=== PATIENT | male | born 1990 | race Caucasian/White ===

== ENCOUNTER 2022-08-30 19:20 | Emergency (ER) | payer OTHER, MEDICAID, SELFPAY ==
[2022-08-30 19:38] VITALS: BP 124/64; PULSE 88; RESP 15; TEMP 36.4; O2SAT 97; BMI 20.2
--- NOTE | 2022-08-30 22:31 | ED_ITS ---
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 Notes that 2 days ago he spilled quite a bit of fluid (water and excess food debris, nothing toxic) into his boots and his feet were wet most of the night. This is not usual nor is he typically in a particularly cold environment. He did take a shower when he got home but noted some slight redness over his feet. He was having increasing pain at work today after not observing his feet prior to coming into work or before he went to bed the night prior. Notice that the pain was increasing and he took his socks off and is concerned with the amount of redness over the great toes in the small toes. Comes in for further evaluation. He is not complaining of fevers or chills, there is no lymphangitic streaking there is no other complaints. He notes that he does typically sleep on the couch and typically wears socks at night but is able to take shoes off. He notes no nausea, vomiting, diarrhea Related Data Previous Rx's Medication Instructions Recorded naproxen 250 mg tablet 250 mg PO BID PRN pain #14 tabs 03/05/22 cephalexin 500 mg capsule 500 mg PO TID 5 days #15 caps 08/30/22 Allergies Allergy/AdvReac Type Severity Reaction Status Date / Time No Known Drug Allergies Allergy Unverified 03/27/22 10:36 Review of Systems Review of Systems Narrative: Remainder of complete review of systems is otherwise unremarkable except for that included in the HPI. Patient History Social History Smoking Status: Never smoker Smoking Status: Never smoker Substance Use Type: does not use Exam Initial Vital Signs Initial Vital Signs: Vital Signs Temperature 97.6 F 08/30/22 19:38 Pulse Rate 88 08/30/22 19:38 Respiratory Rate 15 08/30/22 19:38 Blood Pressure 124/64 08/30/22 19:38 Pulse Oximetry 97 08/30/22 19:38 Oxygen Delivery Method 08/30/22 19:38 General: Alert appropriate in no acute distress Respiratory: Able to speak in full sentences, no obvious respiratory distress Skin: No obvious rashes, warm and dry Neurologic: Grossly intact no obvious asymmetries or abnormalities Psych: appropriate insight and affect, cooperative Extremities: Feet are examined his great toes and small toes are slightly erythematous consistent with mild maceration likely from spending more than 12 hours wet while at work the other day. Does have full sensation. The erythematous areas from the exposure also have some areas of brighter erythema that are concerning for a staph or strep developing cellulitis. He does not have swelling to the feet or the ankles. There is no expanding cellulitis over the feet and no lymphangitic streaking. He has no inguinal adenopathy. He has a chronically missing great toenail on the left side, there is no additional nail involvement with the other 9 toes and no subungual hematomas Course Orders Ordered: Discontinued Medications Cephalexin HCl (Cephalexin 250 Mg Capsule) 500 mg PO NOW ONE Stop: 08/30/22 22:43 Last Admin: 08/30/22 22:45 Dose: 500 mg Vital Signs Vital signs: Vital Signs - 8 hr 08/30/22 19:38 Temperature 97.6 F Pulse Rate 88 Respiratory Rate 15 Blood Pressure 124/64 Pulse Oximetry 97 Oxygen Delivery Method Room Air MDM - Extremity (Nontraumatic) MDM Narrative Medical decision making narrative: CC: Bilateral foot pain. This is a new problem uncertain diagnosis and uncertain prognosis Complicating co-morbidities: Wears boots that are loosely fitting but worn for 12 hours at a time Corroborating data: Data collected from: patient, Differential considered: Schmid nip, trench foot, cellulitis, trauma to the toes, Exam documented above, pertinent findings include: Erythema to both great toes in both small toes Discussion: Explain to the patient that this looks like there is some mild skin breakdown from the maceration exposure and now he is beginning to develop superficial cellulitis. With no other systemic symptoms together we decided that additional workup including lab work was not required at this time. Given a 1st dose of Keflex and discharged home with additional Keflex and instructions to follow up with symptoms worsen Disposition: see below, along with detailed discharge instructions that have been reviewed with patient as well as indications for ED re-evaluation and additional outpatient follow up Discharge Plan Departure Patient Disposition: Home Clinical Impression: Cellulitis Instructions: DI for Cellulitis -- Adult Activity Restrictions/Additional Instructions: Thank you for coming in today Your feet look like they were exposed to either cold or wet or both for an extended period of time which caused some minor breakdown and now your developing a superficial skin infection over the great toes and small toes. I am going to recommend that you complete a 5 day course of Keflex, an antibiotic. I have given you the 1st dose this evening The remainder of the prescription was electronically transmitted to [facility] You do need to keep your feet as clean and dry as possible. I would recommend taking a clean pair of socks to work in changing mid shift to make sure that they do stay dry. I would also recommend not sleeping with socks on again so the feet can completely dry out. Washing them daily will also be helpful and if you do have a hair impregnator and drier, gently drying in between your toes will again get the skin to as dry as possible to allow the infection to heal as quickly and completely as possible If you notice worsening symptoms, red extending up your feet or your ankles, develop fevers or chills or new symptoms you do need to return to the emergency department Prescriptions: New cephalexin 500 mg capsule 500 mg PO TID 5 Days Qty: 15 0RF No Action naproxen 250 mg tablet 250 mg PO BID PRN (Reason: pain) Qty: 14 0RF Referrals: Miscellaneous,Doctor, MD [Primary Care Provider] - Stand Alone Forms: Patient Portal/API, Work Release Note
[2022-08-30] MEDS: cephALEXin 250 MG CAPSULE 500 MG PO (22:45)
[2022-08-30 22:57] VITALS: BP 116/75; PULSE 82; RESP 16; O2SAT 96
== END 2022-08-30 23:01 | disposition home or self-care (01) ==
PROVIDERS: Emergency Provider Emergency Medicine
DX: L03.116 Cellulitis of left lower limb (principal); L03.115 Cellulitis of right lower limb
CPT/HCPCS: 99283

== ENCOUNTER → 2023-04-08 08:18 | Outpatient (CLI) | payer OTHER, MEDICAID, SELFPAY ==
[2023-04-08 10:37] LABS: Influenza A - CEPHEID Flu A NEGATIVE (NEGATIVE); Influenza B - CEPHEID Flu B NEGATIVE (NEGATIVE); Respiratory Syncytial Virus Negative (Negative)
[2023-04-08 10:43] LABS: COVID-19 CEPHEID 4-PLEX PCR Negative (Negative)
== END ==
PROVIDERS: PCP Family Medicine; Visit Provider Physician Assistant
DX: J06.9 Acute upper respiratory infection, unspecified (principal); Z20.822 Contact with and (suspected) exposure to COVID-19
CPT/HCPCS: 0241U; 87880

== ENCOUNTER 2024-05-29 18:28 | Emergency (ER) | payer BC, SELFPAY ==
[2024-05-29 18:32] VITALS: BP 118/66; PULSE 78; RESP 16; TEMP 36.5; O2SAT 98; BMI 20.5
--- NOTE | 2024-05-29 18:58 | ED.WOUNDLAC ---
HPI - Wound/Laceration General Chief Complaint: Wound/Laceration Stated Complaint: cut finger, might need stitches Time Seen by Provider: 05/29/24 18:58 Source: patient Mode of arrival: Ambulatory History of Present Illness HPI narrative: 34-year-old male was washing dishes this evening, cut right index fingertip on cheese grater, small laceration to tip right index finger, would not stop bleeding, here for evaluation. No other injuries. No history of blood thinners or bleeding problems in general. Unclear date of last tetanus, he thinks more than 5 years, willing to get updated. Related Data Home Medications Medication Instructions Recorded Confirmed hydroxyzine pamoate 50 mg capsule 50 mg PO Q6H PRN 03/30/24 05/04/24 oxcarbazepine 150 mg tablet 150 mg PO BID 03/30/24 05/04/24 Previous Rx's Medication Instructions Recorded fluoxetine 40 mg capsule (Prozac) 40 mg PO DAILY #100 caps 03/30/24 Allergies Allergy/AdvReac Type Severity Reaction Status Date / Time No Known Drug Allergies Allergy Verified 05/29/24 18:32 Review of Systems Review of Systems Narrative: see HPI Patient History Medical History (Updated 05/29/24 @ 19:19 by Saulo Gilbert MD) MICHELLE (generalized anxiety disorder) Suicidal ideation PTSD (post-traumatic stress disorder) Depression, unspecified Autistic disorder Viral URI ADHD Social History Smoking Status: Never smoker Smoking Status: Never smoker Substance Use Type: does not use Exam Narrative Exam Narrative: GENERAL: Well-developed patient, in mild distress. HEAD: Atraumatic. Normocephalic. EYES: Pupils equal round and reactive. Extraocular motions intact. No scleral icterus. No injection or drainage. ENT: Nose without bleeding, purulent drainage. Throat without erythema, tonsillar hypertrophy or exudate. Airway patent. NECK: Trachea midline. Non tender CARDIOVASCULAR: Regular rate and rhythm without murmurs, gallops, or rubs. RESPIRATORY: Clear to auscultation. Breath sounds equal bilaterally. No wheezes, rales, or rhonchi. GASTROINTESTINAL: Abdomen soft, non-tender, nondistended. EXTREMITIES: No edema or joint tenderness. Small 6 mm shallow linear laceration to right index fingertip, not actively bleeding when dressing removed. No subungual hematoma or other nailbed injury. No other injuries obvious to the other adjacent fingers or hand or wrist. NEURO: AOx3. Motor functions grossly nonfocal SKIN: No rash or erythema of visible areas. Fingertip laceration as above Initial Vital Signs Initial Vital Signs: Vital Signs Temperature 97.7 F 05/29/24 18:32 Pulse Rate 78 05/29/24 18:32 Respiratory Rate 16 05/29/24 18:32 Blood Pressure 118/66 05/29/24 18:32 Pulse Oximetry 98 05/29/24 18:32 Oxygen Delivery Method Room Air 05/29/24 18:32 Procedures Laceration Repair Laceration 1: Site: hand (Index fingertip) Side (If applicable): right Size (cm): 0.6 Description: linear Skin layer closed with: steri-strips Number of sutures: 1 Course Orders Ordered: Discontinued Medications Diphtheria/Tetanus/Acell Pertussis (Tet,Diph,Pertuss(Acell),Vac/Pf 0.5 Ml Syringe) 0.5 ml IM .ONCE ONE Stop: 05/29/24 19:14 Last Admin: 05/29/24 19:22 Dose: 0.5 ml Documented By: MAXINE Vital Signs Vital signs: Vital Signs - 8 hr 05/29/24 18:32 Temperature 97.7 F Pulse Rate 78 Respiratory Rate 16 Blood Pressure 118/66 Pulse Oximetry 98 Oxygen Delivery Method Room Air MDM - Wound/Laceration MDM Narrative Medical decision making narrative: 34-year-old with right index fingertip laceration, had been bleeding, stopped, small subcentimeter shallow laceration fingertip not extending to nailbed, single Steri-Strips applied by nursing. IM Tdap tetanus update given. Wound infection warnings discussed. Return precautions discussed. Discharged home Discharge Plan Departure Patient Disposition: Home Clinical Impression: Finger laceration Activity Restrictions/Additional Instructions: Right index fingertip laceration from cheese Grater at home, persistent bleeding by report. On exam no active bleeding, small linear laceration fairly superficial in appearance. We discussed x-rays, likely not to bone area, hold x-ray imaging for now. Tetanus shot update given. Steri-Strips applied for extra support around the laceration, which should fall off by itself next few days. Avoid getting the area wet for the next few days. Recheck if any increasing pain or swelling or discharge, any swelling of the finger or hand, or any other concerns for infection. Prescriptions: No Action hydroxyzine pamoate 50 mg capsule 50 mg PO Q6H PRN oxcarbazepine 150 mg tablet 150 mg PO BID Patient Comments: [NO ORIGINAL SIG] fluoxetine [Prozac] 40 mg capsule 40 mg PO DAILY Qty: 100 3RF Referrals: Jaqui Jacobo DO [Primary Care Provider] - Stand Alone Forms: Patient Portal/API/Survey
[2024-05-29] MEDS: TET,DIPH,PERTUSS(ACELL),VAC/PF 0.5 ML SYRINGE IM (19:22)
== END 2024-05-29 19:27 | disposition home or self-care (01) ==
PROVIDERS: Emergency Provider Emergency Medicine; PCP Family Medicine
DX: S61.210A Laceration without foreign body of right index finger without damage to nail, initial encounter (principal); W25.XXXA Contact with sharp glass, initial encounter; Z23 Encounter for immunization
CPT/HCPCS: 90471; 99283; 90715

== ENCOUNTER 2024-07-05 21:50 | Emergency (ER) | payer BC, SELFPAY ==
[2024-07-05 21:58] VITALS: BP 113/60; PULSE 77; RESP 16; TEMP 36.6; O2SAT 98; BMI 20.7
[2024-07-05 23:44] VITALS: BP 110/69; PULSE 80; RESP 18; TEMP 36.8; O2SAT 98
--- NOTE | 2024-07-06 01:30 | PC.NURSE ---
pt has swelling around the cuticle of the right thumb no drainage, denies any injury
--- NOTE | 2024-07-06 02:41 | ED.UPPEXIN ---
HPI - Extremity Injury (Upper) General Chief Complaint: Extremity Injury, Upper Stated Complaint: Infection in R Thumb Time Seen by Provider: 07/06/24 02:24 Source: patient Mode of arrival: Ambulatory History of Present Illness HPI narrative: 34-year-old male complains of right thumb area redness, no bite or puncture wound, increasing pain. No fevers. No redness extending to the palm or wrist or forearm. Patient is not currently on any antibiotics. First visit for this, not taking oral antibiotics. Wound is not draining. No attempted fingernail clippings or other recent nail procedures. Related Data Home Medications Medication Instructions Recorded Confirmed hydroxyzine pamoate 50 mg capsule 50 mg PO Q6H PRN 03/30/24 07/01/24 Previous Rx's Medication Instructions Recorded fluoxetine 40 mg capsule (Prozac) 40 mg PO DAILY #100 caps 03/30/24 oxcarbazepine 150 mg tablet 150 mg PO BID #60 tabs 06/02/24 amoxicillin 875 mg-potassium 1 tab PO BID 7 days #14 tabs 07/01/24 clavulanate 125 mg tablet cephalexin 500 mg capsule 500 mg PO QID 7 days #28 caps 07/06/24 sulfamethoxazole 800 1 tab PO BID #14 tabs 07/06/24 mg-trimethoprim 160 mg tablet (Bactrim DS) Allergies Allergy/AdvReac Type Severity Reaction Status Date / Time No Known Drug Allergies Allergy Verified 06/02/24 09:24 Review of Systems Review of Systems Narrative: see HPI Patient History Medical History MICHELLE (generalized anxiety disorder) Suicidal ideation PTSD (post-traumatic stress disorder) Depression, unspecified Autistic disorder Viral URI ADHD Social History Smoking Status: Never smoker Smoking Status: Never smoker Exam Narrative Exam Narrative: GENERAL: Well-developed patient, in mild distress. HEAD: Atraumatic. Normocephalic. EYES: Pupils equal round and reactive. Extraocular motions intact. No scleral icterus. No injection or drainage. ENT: Nose without bleeding, purulent drainage. Throat without erythema, tonsillar hypertrophy or exudate. Airway patent. NECK: Trachea midline. Non tender CARDIOVASCULAR: Regular rate and rhythm without murmurs, gallops, or rubs. RESPIRATORY: Clear to auscultation. Breath sounds equal bilaterally. No wheezes, rales, or rhonchi. GASTROINTESTINAL: Abdomen soft, non-tender, nondistended. EXTREMITIES: Right thumb medial aspect periungual fluctuance, consistent with paronychia, no expressible fluid, redness surrounding in medial dorsal thumb, no grossly obvious IP swelling, no MCP swelling of the thumb. BACK: Nontender without deformity or crepitance. No flank tenderness. NEURO: AOx3. Motor functions grossly nonfocal SKIN: No rash or erythema of visible areas Initial Vital Signs Initial Vital Signs: Vital Signs Temperature 97.9 F 07/05/24 21:58 Pulse Rate 77 07/05/24 21:58 Respiratory Rate 16 07/05/24 21:58 Blood Pressure 113/60 07/05/24 21:58 Pulse Oximetry 98 07/05/24 21:58 Oxygen Delivery Method Room Air 07/05/24 21:58 Procedures Abscess I/D I&D #1: Local Anesthetic: lidocaine 1% and with epi Amount of anesthesia used (mL): 3 Technique: incised with #11 blade Amount of fluid expressed (mL): 1 Irrigation: No Packing used?: none Complications: pain and other (Wound culture sent) Course Orders Ordered: Discontinued Medications Hydrocodone Bitart/Acetaminophen (Hydrocodone/Acet 5/325 Tablet) 1 tab PO NOW ONE Stop: 07/06/24 02:58 Last Admin: 07/06/24 03:03 Dose: 1 tab Documented By: Cephalexin HCl (Cephalexin 250 Mg Capsule) 500 mg PO NOW ONE Stop: 07/06/24 02:58 Last Admin: 07/06/24 03:02 Dose: 500 mg Documented By: AB Ibuprofen (Ibuprofen 400 Mg Tablet) 800 mg PO NOW ONE Stop: 07/06/24 03:08 Last Admin: 07/06/24 03:09 Dose: 800 mg Documented By: AB Trimethoprim/Sulfamethoxazole (Trimeth/Sulfa 160/800 (Ds) Tablet) 1 tab PO NOW ONE Stop: 07/06/24 02:58 Last Admin: 07/06/24 03:03 Dose: 1 tab Documented By: AB Vital Signs Vital signs: Vital Signs - 8 hr 07/05/24 23:44 07/06/24 03:20 Temperature 98.2 F Pulse Rate 80 80 Respiratory Rate 18 16 Blood Pressure 110/69 112/80 Pulse Oximetry 98 99 Oxygen Delivery Method Room Air Room Air MDM - Extremity Injury (Upper) MDM Narrative Medical decision making narrative: 34-year-old male with right thumb paronychia, surrounding cellulitis, doubt phelon at this time. Verbal consent for incision and drainage. Con digital block lidocaine, stab incision #11 Blade, purulence expressed, wound culture sent. Oral Keflex, oral Bactrim, 1st doses antibiotics given, prescription sent to pharmacy for futrther oral courses, pending wound culture results. Wound soaked, with self expression pus/blood from incision wound, then dressed with bulky dressing by nursing. Wound check in the next 24-48 hours, here if he can not make any outpatient changes with his regular provider. Advised [id number] pain medications as needed. Tolerated procedure well. Return precautions discussed Discharge Plan Departure Patient Disposition: Home Clinical Impression: Paronychia of finger, Cellulitis of left thumb Activity Restrictions/Additional Instructions: One-week duration right nailbed area swelling, with redness to the distal tip thumb. No fever on triage. On examination you seemed to have some fluctuance in the periungual around the nail area, consistent with paronychia small abscess, and associated cellulitis of the rest of the adjacent finger. Con digital block was injected to the thumb base, with sharp 11. Blade stab incision, white yellow pus was expressed, wound culture sent. Oral dose of cephalexin and Bactrim, 1st dose now, further prescriptions pending culture results sent to your pharmacy. Pain medication given in the emergency department, along with home pack to use next couple of days if needed. Consider taking ibuprofen [id number] for pain control as well. Wound check advised here or with your regular doctor in the next couple of days. Also consider local follow up Orthopedic surgery consultation, clinic consultation contact information provided for Dr. Long. Recheck in the next couple of days in these resource environments, or here if you are unable to arrange any other follow up. Return earlier to this/nearest emergency department for any change worsening symptoms or any concerns prior Prescriptions: New sulfamethoxazole-trimethoprim [Bactrim DS] 800-160 mg tablet 1 tab PO BID Qty: 14 0RF cephalexin 500 mg capsule 500 mg PO QID 7 Days Qty: 28 0RF No Action amoxicillin-pot clavulanate 875-125 mg tablet 1 tab PO BID 7 Days Qty: 14 0RF hydroxyzine pamoate 50 mg capsule 50 mg PO Q6H PRN fluoxetine [Prozac] 40 mg capsule 40 mg PO DAILY Qty: 100 3RF oxcarbazepine 150 mg tablet 150 mg PO BID Qty: 60 11RF Referrals: Amy Bailey MD [Physician] - Jaqui Jacobo DO [Primary Care Provider] - Stand Alone Forms: Patient Portal/API/Survey
--- NOTE | 2024-07-06 03:01 | PC.NURSE ---
Dr Gilbert in and thumb I/D with culture obtained and sent to lab
[2024-07-06] MEDS: cephALEXin 250 MG CAPSULE 500 MG PO (03:02)
[2024-07-06] MEDS: HYDROCODONE/ACET 5/325 TABLET 1 TAB PO (03:03)
[2024-07-06] MEDS: TRIMETH/SULFA 160/800 (DS) TABLET 1 TAB PO (03:03)
[2024-07-06] MEDS: IBUPROFEN 400 MG TABLET 800 MG PO (03:09)
[2024-07-06 03:20] VITALS: BP 112/80; PULSE 80; RESP 16; O2SAT 99
--- NOTE | 2024-07-07 12:34 | CM.SWNOTE ---
ED FOOD RUNNER follow up note FOOD RUNNER attempts to call patient but phone is disconnected, FOOD RUNNER identifies that patient missed PCP appt today as well. Ana Anderson, DATA INTEGRATION DEVELOPER
== END 2024-07-06 03:28 | disposition home or self-care (01) ==
PROVIDERS: Emergency Provider Emergency Medicine; PCP Family Medicine
DX: L03.012 Cellulitis of left finger (principal); L02.512 Cutaneous abscess of left hand
CPT/HCPCS: 10060; 99283

== ENCOUNTER 2024-08-17 14:28 | Emergency (ER) | payer BC, SELFPAY ==
[2024-08-17 15:10] VITALS: BP 110/66; PULSE 63; RESP 18; TEMP 36.8; O2SAT 98; BMI 20.7
[2024-08-17 18:27] VITALS: BP 110/72; PULSE 65; RESP 20; TEMP 37; O2SAT 100
--- NOTE | 2024-08-17 18:39 | ED_ITS ---
HPI - Skin/Abscess/Foreign Bdy <Nicol Mejia PA-C - Last Filed: 08/17/24 18:45> General Chief complaint: Skin/Abscess/Foreign Body Stated complaint: poss infection on finger Time Seen by Provider: 08/17/24 17:16 Source: patient Mode of arrival: Ambulatory Limitations: no limitations History of Present Illness HPI narrative: 34-year-old male presents to the ED with a right ring finger infection for 2 days. Patient states that he did not have any injury he is aware of. Patient had a similar infection of the thumb last month as well. Patient denies fever, chills, numbness, tingling, weakness. Patient has full range of motion. Patient complains of swelling, redness, pain at the tip of the right ring finger. Related Data Home Medications Medication Instructions Recorded Confirmed hydroxyzine pamoate 50 mg capsule 50 mg PO Q6H PRN 03/30/24 07/01/24 Previous Rx's Medication Instructions Recorded fluoxetine 40 mg capsule (Prozac) 40 mg PO DAILY #100 caps 03/30/24 oxcarbazepine 150 mg tablet 150 mg PO BID #60 tabs 06/02/24 sulfamethoxazole 800 1 tab PO BID #14 tabs 07/06/24 mg-trimethoprim 160 mg tablet (Bactrim DS) cephalexin 500 mg tablet 500 mg PO TID 7 days #21 tabs 08/17/24 sulfamethoxazole 800 1 tab PO Q12H 7 days #14 tabs 08/17/24 mg-trimethoprim 160 mg tablet (Bactrim DS) Allergies Allergy/AdvReac Type Severity Reaction Status Date / Time No Known Drug Allergies Allergy Verified 06/02/24 09:24 Review of Systems <Nicol Mejia PA-C - Last Filed: 08/17/24 18:45> Constitutional Constitutional: Denies chills, Denies fatigue, Denies fever(s), Denies frequent falls, Denies lethargy and Denies weakness Eyes Eyes: Denies change in vision, Denies eye discharge, Denies irritation and Denies loss of vision ENT Ears, Nose, Mouth, and Throat: Denies change in voice, Denies dizziness, Denies neck pain, Denies sore throat and Denies throat swelling Cardiovascular Cardiovascular: Denies chest pain, Denies irregular heart rhythm, Denies lightheadedness, Denies palpitations, Denies dyspnea, Denies dyspnea on exertion and Denies orthopnea Respiratory Respiratory: Denies cough, Denies dyspnea, Denies dyspnea on exertion and Denies wheezing Gastrointestinal Gastrointestinal: Denies abdominal pain, Denies change in bowel habits, Denies diarrhea, Denies nausea and Denies vomiting Musculoskeletal Musculoskeletal: Denies neck pain and Denies numbness Integumentary/Breasts Skin/Breast: Denies pruritus, Denies erythema, Denies rash and Denies wounds Comments: Right ring fingertip swelling, redness, pain Neurologic Neurologic: Denies behavioral changes, Denies confusion, Denies dizziness, Denies frequent falls, Denies loss of vision, Denies numbness and Denies w eakness Psychiatric Psychiatric: Denies anxiety, Denies behavioral changes, Denies confusion, Denies depression, Denies homicidal ideation and Denies suicidal ideation Endocrine Endocrine: Denies fatigue, Denies flushing and Denies palpitations Hematologic/Lymphatic Hematologic/Lymphatic: Denies easy bruising Allergic/Immunologic Allergic/Immunologic: Denies urticaria, Denies throat swelling and Denies wheezing Patient History <Nicol Mejia PA-C - Last Filed: 08/17/24 18:45> Medical History MICHELLE (generalized anxiety disorder) Suicidal ideation PTSD (post-traumatic stress disorder) Depression, unspecified Autistic disorder Viral URI ADHD Social History Smoking Status: Never smoker Smoking Status: Never smoker Exam <Nicol Mejia PA-C - Last Filed: 08/17/24 18:45> Narrative Exam Narrative: Const General:?cooperative, healthy appearing and comfortable [facility] Head:?normal to inspection Ears:?hearing grossly normal bilaterally Nose:?external nose normal Face and sinus:?normal facial exam and sinuses nontender Mouth:?oral mucosae normal Throat:?posterior oropharynx normal Eyes General:?appearance normal, both eyes and all related structures Neck Neck:?normal visual inspection and no lymphadenopathy noted Resp Effort & Inspection:?normal respiratory effort Auscultation:?clear to auscultation bilaterally Cardio Rate:?regular rate Rhythm:?regular rhythm Integumentary Tip of the right ring finger with swelling, tenderness to pain, fluctuance lateral to the nail. There is overlying erythema. Full range of motion. Strength and sensation is intact. Neurovascularly intact. Neuro General:?patient alert, patient awake and patient oriented x3 Initial Vital Signs Initial Vital Signs: Vital Signs Temperature 98.2 F 08/17/24 15:10 Pulse Rate 63 08/17/24 15:10 Respiratory Rate 18 08/17/24 15:10 Blood Pressure 110/66 08/17/24 15:10 Pulse Oximetry 98 08/17/24 15:10 Oxygen Delivery Method Room Air 08/17/24 15:10 <Joel Ochoa MD - Last Filed: 08/18/24 07:35> Initial Vital Signs Initial Vital Signs: Vital Signs Temperature 98.2 F 08/17/24 15:10 Pulse Rate 63 08/17/24 15:10 Respiratory Rate 18 08/17/24 15:10 Blood Pressure 110/66 08/17/24 15:10 Pulse Oximetry 98 08/17/24 15:10 Oxygen Delivery Method Room Air 08/17/24 15:10 Procedures <Nicol Mejia PA-C - Last Filed: 08/17/24 18:45> Abscess I/D I&D #1: Site: hand Side (if applicable): right Sedation/analgesia: none Technique: incised with #11 blade Amount of fluid expressed (mL): 1 Irrigation: No Packing used?: none Course <Nicol Mejia PA-C - Last Filed: 08/17/24 18:45> Vital Signs Vital signs: Vital Signs - 8 hr 08/17/24 15:10 08/17/24 18:27 Temperature 98.2 F 98.6 F Pulse Rate 63 65 Respiratory Rate 18 20 Blood Pressure 110/66 110/72 Pulse Oximetry 98 100 Oxygen Delivery Method Room Air Room Air <Joel Ochoa MD - Last Filed: 08/18/24 07:35> Vital Signs Vital signs: Vital Signs - 8 hr 08/17/24 15:10 08/17/24 18:27 Temperature 98.2 F 98.6 F Pulse Rate 63 65 Respiratory Rate 18 20 Blood Pressure 110/66 110/72 Pulse Oximetry 98 100 Oxygen Delivery Method Room Air Room Air MDM - Skin/Abscess/Foreign Bdy <Nicol Mejia PA-C - Last Filed: 08/17/24 18:45> MDM Narrative Medical decision making narrative: 34-year-old male presents to the ED with a right ring finger infection for 2 days. Physical exam is consistent with a paronychia of the right ring finger with overlying cellulitis. Incision and drainage was performed, antibiotics prescribed. Recommend follow-up with PCP as soon as possible. ED return precautions discussed with patient. Patient verbalized understanding. Medical records reviewed: Yes Discharge Plan Departure Patient Disposition: Home Clinical Impression: Paronychia Instructions: DI for Paronychia Activity Restrictions/Additional Instructions: You were evaluated in the emergency department for a finger infection. You are being prescribed antibiotics. Please take them as prescribed. Return to the ED if you have worsening symptoms, numbness, tingling, weakness. Prescriptions: New cephalexin 500 mg tablet 500 mg PO TID 7 Days Qty: 21 0RF sulfamethoxazole-trimethoprim [Bactrim DS] 800-160 mg tablet 1 tab PO Q12H 7 Days Qty: 14 0RF No Action hydroxyzine pamoate 50 mg capsule 50 mg PO Q6H PRN fluoxetine [Prozac] 40 mg capsule 40 mg PO DAILY Qty: 100 3RF oxcarbazepine 150 mg tablet 150 mg PO BID Qty: 60 11RF sulfamethoxazole-trimethoprim [Bactrim DS] 800-160 mg tablet 1 tab PO BID Qty: 14 0RF Referrals: Jaqui Jacobo DO [Primary Care Provider] - Stand Alone Forms: Patient Portal/API/Survey ED Sign-out <Joel Ochoa MD - Last Filed: 08/18/24 07:35> Cosign ED Attending Cosdianaature Attestation: I was immediately available in the department for consultation. ?This documentation has been reviewed and I agree with assessment and plan. Supervised by Joel Ochoa MD
== END 2024-08-17 18:29 | disposition home or self-care (01) ==
PROVIDERS: Emergency Provider Student in an Organized Health Care Education/Training Program; PCP Family Medicine
DX: L03.011 Cellulitis of right finger (principal)
CPT/HCPCS: 10060; 87070; 87075; 87205; 99281; 99283

== ENCOUNTER 2024-08-23 18:31 | Emergency (ER) | payer BC, SELFPAY ==
[2024-08-23 18:33] VITALS: BP 129/88; PULSE 103; RESP 18; TEMP 36.8; O2SAT 97; BMI 20.7
[2024-08-23 23:39] LABS: Ictotest Urine Negative (Negative)
[2024-08-23 23:56] VITALS: BP 119/76; PULSE 59; O2SAT 97
--- NOTE | 2024-08-23 23:56 | ED_ITS ---
HPI - General Adult General Chief complaint: Urogenital-Male Stated complaint: groin px Time Seen by Provider: 08/23/24 23:05 Source: patient Mode of arrival: Ambulatory History of Present Illness HPI narrative: 34-year-old male with penile redness and discharge, states that he has been frequently and aggressively masturbating since split up with his a year ago, especially in recent days, with some redness to the end of his penis and of his shaft area, with some yellow purulent discharge. No discharge from the end of his penis. No painful urination. No known history of sexually transmitted diseases. No vesicles or lesions to the lower part of his penis, or his scrotum or perineal groin region. No hair follicle inflammation changes. Related Data Home Medications Medication Instructions Recorded Confirmed hydroxyzine pamoate 50 mg capsule 50 mg PO Q6H PRN 03/30/24 07/01/24 Previous Rx's Medication Instructions Recorded fluoxetine 40 mg capsule (Prozac) 40 mg PO DAILY #100 caps 03/30/24 oxcarbazepine 150 mg tablet 150 mg PO BID #60 tabs 06/02/24 sulfamethoxazole 800 1 tab PO BID #14 tabs 07/06/24 mg-trimethoprim 160 mg tablet (Bactrim DS) cephalexin 500 mg tablet 500 mg PO TID 7 days #21 tabs 08/17/24 sulfamethoxazole 800 1 tab PO Q12H 7 days #14 tabs 08/17/24 mg-trimethoprim 160 mg tablet (Bactrim DS) cephalexin 500 mg capsule 500 mg PO QID 7 days #28 caps 08/24/24 sulfamethoxazole 800 1 tab PO BID #14 tabs 08/24/24 mg-trimethoprim 160 mg tablet (Bactrim DS) Allergies Allergy/AdvReac Type Severity Reaction Status Date / Time No Known Drug Allergies Allergy Verified 06/02/24 09:24 Patient History Medical History MICHELLE (generalized anxiety disorder) Suicidal ideation PTSD (post-traumatic stress disorder) Depression, unspecified Autistic disorder Viral URI ADHD Social History Smoking Status: Never smoker Smoking Status: Never smoker Exam Narrative Exam Narrative: GENERAL: Well-developed patient, in mild distress. HEAD: Atraumatic. Normocephalic. EYES: Pupils equal round and reactive. Extraocular motions intact. No scleral icterus. No injection or drainage. ENT: Nose without bleeding, purulent drainage. Throat without erythema, tonsillar hypertrophy or exudate. Airway patent. NECK: Trachea midline. Non tender CARDIOVASCULAR: Regular rate and rhythm without murmurs, gallops, or rubs. RESPIRATORY: Clear to auscultation. Breath sounds equal bilaterally. No wheezes, rales, or rhonchi. GASTROINTESTINAL: Abdomen soft, non-tender, nondistended. : Circumcised male genitalia, donis without lesions, no meatal discharge. Subcoronal distal penile shaft with circumferential erythema proximally 2 cm axial length, with some yellow purulent discharge. No vesicles noted. No inguinal lymphadenopathy. No folliculitis pubic. No tenderness or masses see the scrotum or epididymal region. EXTREMITIES: No edema or joint tenderness. BACK: Nontender without deformity or crepitance. No flank tenderness. NEURO: AOx3. Motor functions grossly nonfocal SKIN: No rash or erythema of visible areas Initial Vital Signs Initial Vital Signs: Vital Signs Temperature 98.2 F 08/23/24 18:33 Pulse Rate 103 H 08/23/24 18:33 Respiratory Rate 18 08/23/24 18:33 Blood Pressure 129/88 08/23/24 18:33 Pulse Oximetry 97 08/23/24 18:33 Oxygen Delivery Method Room Air 08/23/24 18:33 Course Orders Ordered: ED Orders 08/23/24 23:00 Chlamydia Gonorrhea PCR -URINE Stat Ictotest Urine Stat 08/24/24 00:07 Wound Culture and Gram Stain Stat Discontinued Medications Cephalexin HCl (Cephalexin 250 Mg Capsule) 500 mg PO NOW ONE Stop: 08/24/24 00:11 Last Admin: 08/24/24 00:22 Dose: 500 mg Documented By: GEOVANNY Trimethoprim/Sulfamethoxazole (Trimeth/Sulfa 160/800 (Ds) Tablet) 1 tab PO NOW ONE Stop: 08/24/24 00:11 Last Admin: 08/24/24 00:22 Dose: 1 tab Documented By: GEOVANNY Vital Signs Vital signs: Vital Signs - 8 hr 08/23/24 23:56 08/24/24 00:00 Pulse Rate 59 L 61 Blood Pressure 119/76 Pulse Oximetry 97 98 Medical Decision Making Lab Data Lab results reviewed: Yes I reviewed the patient's lab results. Lab results narrative: Urine GC chlamydia negative. Urine dip negative. Labs: Lab Results 08/23/24 Range/Units 23:00 Ur Bilirubin Confirm Negative (Negative) Ur Chlamydia DNA (PCR) Not detected N gonorrhoeae DNA (PCR) Not detected Urine Dip Bedside Urine Glucose Negative Bedside Urine Bilirubin + 1 Bedside Urine Ketone - Negative Urine Specific [place] 1.030 Bedside Urine Occult Blood - Negative Bedside Urine pH 6.0 Bedside Urine Protein - Negative Bedside Urine Urobilinogen - Negative Bedside Urine Nitrite - Negative Bedside Urine Leukocytes - Negative Esterase Point of care testing: Urine Dip Bedside Urine Glucose Negative Bedside Urine Bilirubin + 1 Bedside Urine Ketone - Negative Urine Specific [place] 1.030 Bedside Urine Occult Blood - Negative Bedside Urine pH 6.0 Bedside Urine Protein - Negative Bedside Urine Urobilinogen - Negative Bedside Urine Nitrite - Negative Bedside Urine Leukocytes - Negative Esterase MDM Narrative Medical decision making narrative: 34-year-old male with penile rash in discharge, on examination the rashes distal circumferential penis not coronal, no meatal discharge. Patient has been aggressively and frequently masturbating, has no recent sexual encounters. There is some exudate in the distal penis, wound culture sent. Urine GC chlamydia sent from triage was negative. Urine dip negative. We will treat for cellulitis for now, wound culture sent. Oral cephalexin and oral Bactrim antibiotic 1st dose now, prescription sent to his pharmacy for further course antibiotic. Encouraged to take his antibiotic as directed. Tylenol and or Motrin advised for pain control. Recheck advised with his regular doctor in the next couple of days. Return precautions discussed. Discharge Plan Departure Patient Disposition: Home Clinical Impression: Cellulitis of shaft of penis Activity Restrictions/Additional Instructions: Penile rash painful with discharge, no discharge from the meatus at the end or during urination. Recent vigorous and frequent masturbation, abrasion to the end of the penis, now with redness and discharge from the end of the shaft, not at the end of the opening of the meatus. No known sexual contact for many many months. No sexually transmitted disease contact by history. Examination consistent with cellulitis with discharge, wound culture was sent. First antibiotics oral cephalexin and Bactrim given by mouth, prescriptions sent to your pharmacy for further course of antibiotics. Take antibiotics as prescribed. Recheck with your regular doctor advised the next couple of days. Avoid masturbation and direct injury to that part of the penis. Take Tylenol and or Motrin as needed for pain control. Return earlier to this/nearest [facility] department for any change worsening symptoms or any concerns prior Prescriptions: New cephalexin 500 mg capsule 500 mg PO QID 7 Days Qty: 28 0RF sulfamethoxazole-trimethoprim [Bactrim DS] 800-160 mg tablet 1 tab PO BID Qty: 14 0RF No Action hydroxyzine pamoate 50 mg capsule 50 mg PO Q6H PRN fluoxetine [Prozac] 40 mg capsule 40 mg PO DAILY Qty: 100 3RF oxcarbazepine 150 mg tablet 150 mg PO BID Qty: 60 11RF sulfamethoxazole-trimethoprim [Bactrim DS] 800-160 mg tablet 1 tab PO BID Qty: 14 0RF cephalexin 500 mg tablet 500 mg PO TID 7 Days Qty: 21 0RF sulfamethoxazole-trimethoprim [Bactrim DS] 800-160 mg tablet 1 tab PO Q12H 7 Days Qty: 14 0RF Referrals: Jaqui Jacobo DO [Primary Care Provider] - Stand Alone Forms: Patient Portal/API/Survey, Work Release Note
[2024-08-24] VITALS: PULSE 61; O2SAT 98
--- NOTE | 2024-08-24 00:16 | PC.NURSE ---
thinks wound was inflicted from masturbating a lot.
[2024-08-24] MEDS: cephALEXin 250 MG CAPSULE 500 MG PO (00:22)
[2024-08-24] MEDS: TRIMETH/SULFA 160/800 (DS) TABLET 1 TAB PO (00:22)
[2024-08-24 00:56] LABS: Urine N gonorrhoeae NOT DETECTED
[2024-08-24 01:02] LABS: Urine Chlamydia NOT DETECTED
== END 2024-08-24 00:40 | disposition home or self-care (01) ==
PROVIDERS: Emergency Medicine; Emergency Provider Emergency Medicine; PCP Family Medicine
DX: N48.22 Cellulitis of corpus cavernosum and penis (principal)
CPT/HCPCS: 81003; 87070; 87205; 87491; 87591; 99283

== ENCOUNTER 2025-01-05 01:00 | Emergency (ER) | payer OTHER, SELFPAY ==
[2025-01-05 01:07] VITALS: BP 118/69; PULSE 70; RESP 16; TEMP 36.3; O2SAT 97; BMI 22.3
--- NOTE | 2025-01-05 02:45 | ED.SKABFB ---
HPI - Skin/Abscess/Foreign Bdy General Chief complaint: Skin/Abscess/Foreign Body Stated complaint: Infection on Lft Index Finger x3days Time Seen by Provider: 01/05/25 02:44 Source: patient Mode of arrival: Ambulatory Limitations: no limitations History of Present Illness HPI narrative: 34-year-old male with chart history of autistic disorder, ADHD, PTSD, anxiety, has had prior visits for skin infections including previous paronychia that was drained July 2024. Now complains of left index finger pain and swelling. Currently not on any antibiotics. He does not recall any puncture wounds or biting of his fingers/nails, nor use of any cuticle nail products. Related Data Home Medications ?Medication ?Instructions ?Recorded ?Confirmed hydroxyzine pamoate 50 mg capsule 50 mg PO Q6H PRN 03/30/24 08/24/24 Previous Rx's ?Medication ?Instructions ?Recorded fluoxetine 40 mg capsule (Prozac) 40 mg PO DAILY #100 caps 03/30/24 oxcarbazepine 150 mg tablet 150 mg PO BID #60 tabs 06/02/24 clotrimazole 1 % topical cream 1 applic topical BID 2 weeks #30 08/24/24 grams sulfamethoxazole 800 1 tab PO BID #14 tabs 01/05/25 mg-trimethoprim 160 mg tablet (Bactrim DS) Allergies Allergy/AdvReac Type Severity Reaction Status Date / Time No Known Drug Allergies Allergy Verified 01/05/25 01:07 Patient History Medical History MICHELLE (generalized anxiety disorder) Suicidal ideation PTSD (post-traumatic stress disorder) Depression, unspecified Autistic disorder Viral URI ADHD Exam Narrative Exam Narrative: GENERAL: Well-developed patient, in mild distress. HEAD: Atraumatic. Normocephalic. EYES: Pupils equal round and reactive. Extraocular motions intact. No scleral icterus. No injection or drainage. ENT: Nose without bleeding, purulent drainage. Throat without erythema, tonsillar hypertrophy or exudate. Airway patent. NECK: Trachea midline. Non tender CARDIOVASCULAR: Regular rate and rhythm without murmurs, gallops, or rubs. RESPIRATORY: Clear to auscultation. Breath sounds equal bilaterally. No wheezes, rales, or rhonchi. GASTROINTESTINAL: Abdomen soft, non-tender, nondistended. EXTREMITIES: Left index finger periungual erythema, with radial aspect purulence near surface, not expressible, no drainage. No subungual discoloration. Remainder of affected digit without swelling. No streaking extending along the finger or hand. BACK: Nontender without deformity or crepitance. No flank tenderness. NEURO: AOx3. Motor functions grossly nonfocal SKIN: No rash or erythema of visible areas Initial Vital Signs Initial Vital Signs: Vital Signs Temperature 97.4 F L 01/05/25 01:07 Pulse Rate 70 01/05/25 01:07 Respiratory Rate 16 01/05/25 01:07 Blood Pressure 118/69 01/05/25 01:07 Pulse Oximetry 97 01/05/25 01:07 Oxygen Delivery Method Room Air 01/05/25 01:07 Course Orders Ordered: ED Orders 01/05/25 02:55 Wound Culture and Gram Stain Stat Discontinued Medications Trimethoprim/Sulfamethoxazole (Trimeth/Sulfa 160/800 (Ds) Tablet) 1 tab PO NOW ONE Stop: 01/05/25 03:03 Vital Signs Vital signs: Vital Signs - 8 hr 01/05/25 01:07 01/05/25 03:23 Temperature 97.4 F L Pulse Rate 70 83 Respiratory Rate 16 16 Blood Pressure 118/69 115/77 Pulse Oximetry 97 100 Oxygen Delivery Method Room Air Room Air MDM - Skin/Abscess/Foreign Bdy MDM Narrative Medical decision making narrative: Left index finger paronychia, previous paronychia July 2024 treated with oral Bactrim after incision and drainage. He preferred antibiotics only without any drainage/aspiration procedure, however we had extensive discussion of the swollen really get better without drainage, and likely would worsen. He gave verbal consent for stab incision. He elected to defer digital block when offered. Procedure: Paronychia drainage, no anesthesia per patient preference, quick stab incision with 11. Blade and affected area, with expression of yellow fluid pus. Wound culture sent. Previous response to Bactrim and tolerance of Bactrim, we will give dose of oral Bactrim and prescription for further course to take as an outpatient. Recheck wound advised with his regular doctor in 2 days. Discharged home. Return precautions discussed. Discharge Plan Departure Patient Disposition: Home Clinical Impression: Paronychia of finger Activity Restrictions/Additional Instructions: Previous paronychia finger infections, in July 2024 you had finger infection that was treated with Bactrim/sulfa antibiotic. We discussed drainage procedure. You gave verbal consent for drainage. You elected not to have injection of anesthesia to the finger. Surgical blade quick shallow stab incision was done, with expression of pus. Wound culture was sent. 1st dose of oral antibiotic Bactrim/sulfa was given, prescription sent to your pharmacy for further doses. Take antibiotics as directed. Take Tylenol and or Motrin as needed for pain control. Continue taking your chronic regular medications. Recheck your finger with your regular doctor in in the next couple of days. Return to this/nearest emergency department for any change worsening symptoms or any concerns prior. Prescriptions: New sulfamethoxazole-trimethoprim [Bactrim DS] 800-160 mg tablet 1 tab PO BID Qty: 14 0RF No Action hydroxyzine pamoate 50 mg capsule 50 mg PO Q6H PRN fluoxetine [Prozac] 40 mg capsule 40 mg PO DAILY Qty: 100 3RF oxcarbazepine 150 mg tablet 150 mg PO BID Qty: 60 11RF clotrimazole 1 % cream 1 applic topical BID 14 Days Qty: 30 2RF Rx Instructions: or until symptoms resolve Referrals: Jaqui Jacobo DO [Primary Care Provider, Family Practice] Stand Alone Forms: Patient Portal/API, Work Release Note
[2025-01-05 03:23] VITALS: BP 115/77; PULSE 83; RESP 16; O2SAT 100
== END 2025-01-05 03:23 | disposition home or self-care (01) ==
PROVIDERS: Emergency Provider Emergency Medicine; PCP Family Medicine
DX: L03.012 Cellulitis of left finger (principal)
CPT/HCPCS: 87070; 87077; 87147; 87186; 87205; 99281; 99283

== ENCOUNTER → 2025-07-12 09:56 | Outpatient (CLI) | payer OTHER, SELFPAY ==
[2025-07-12 10:53] LABS: Hematocrit 44.6 % (41-53); Hemoglobin 15.1 g/dL (13.5-17.5); Mean Corpuscular HGB Conc 33.8 % (30-36); Mean Corpuscular Hemoglobin 29.0 PG (26-34); Mean Corpuscular Volume 85.7 fL (80-100); Platelet Count 276 X10^3/uL (150-400)
[2025-07-12 11:25] LABS: Alanine Aminotransferase 25 IU/L (<50); Albumin 4.7 g/dL (3.5-5.0); Albumin Globulin Ratio 1.6 (1.0-2.8); Alkaline Phosphatase 63 U/L (38-126); Blood Urea Nitrogen 13 mg/dL (9-20); Calcium 9.4 mg/dL (8.4-10.2); Carbon Dioxide 28 mmol/L (22-32); Chloride 103 mmol/L (98-107); Estimated Glomerular Filt Rate > 60 mL/min (>60); Globulin 2.9 g/dL (1.7-4.1); Glucose 87 mg/dL (70-99); HEMOLYSIS < 15 (0-50); Potassium 4.7 mmol/L (3.4-5.1); Sodium 140 mmol/L (137-145); Total Protein 7.6 g/dL (6.3-8.2)
[2025-07-13 04:36] LABS: Valproic Acid (Depakene) Total 21 ug/mL (50-100)
== END ==
PROVIDERS: PCP Family Medicine; Referring Provider Family Medicine; Visit Provider Family Medicine
DX: F32.1 Major depressive disorder, single episode, moderate (principal); F41.1 Generalized anxiety disorder
CPT/HCPCS: 36415; 80053; 80164; 85027